=== PATIENT | female | born 1990 | race Caucasian/White ===

== ENCOUNTER 2017-02-01 18:31 | Observation (INO) | payer MEDICAID ==
[~2017-02-01 18:31] MED LIST: BACTRIM; CRANBERRY300 M1 PO; FISH OIL 1,0001 EA10; IBUPROFEN800 M1 PO; LEVOTHYROXINE50 MC3 PO; NORCO 5-325 TA1 EACH PO; VITAMIN D-32000 UNI3 PO
== END 2017-02-01 20:04 ==
LOC: LDR 18:31
PROVIDERS: ADMIT Advanced Practice Midwife
DX: O36.8130 Decreased fetal movements, third trimester, not applicable or unspecified (principal); Z3A.31 31 weeks gestation of pregnancy

== ENCOUNTER 2017-02-07 22:30 | Inpatient (IN) | payer MEDICAID ==
[2017-02-09 05:53] LABS: BASO % 0.1 % (0-2); EOS % 1.3 % (0-7); EOSINOPHIL ABSOLUTE COUNT 0.2 tho/cmm (0.0-0.7); HCT-HEMATOCRIT 32.1 % (34.0-49.0); HGB-HEMOGLOBIN 10.9 gm/dl (12.0-15.5); IMMATURE GRANULOCYTES ABSOLUTE 0.07 tho/cmm (0-0.03); IMMATURE GRANULOCYTES PERCENT 0.5 % (0-0.3); LYMPH % 20.9 % (20-45); MCH (MEAN CORPUSCULAR HGB) 30.1 pg (28.0-32.0); MCV (MEAN CELL VOLUME) 88.7 fl (82.0-96.0); MEAN PLATELET VOLUME 9.6 cmc (9.4-12.4); MONO % 7.9 % (0-12); MONOCYTE ABSOLUTE COUNT 1.1 tho/cmm (0.0-1.2); NEUTROPHILS % 69.3 % (40-80); PLATELET COUNT 238 tho/cmm (150-450); RED BLOOD COUNT 3.62 mil/cmm (4.00-5.20); RED CELL DISTRIBUTION WIDTH 12.6 % (12.4-16.4); WHITE BLOOD COUNT 14.5 tho/cmm (4.0-10.0)
[2017-02-10] MEDS ORDERED: IBUPROFEN800 M1 PO (10:50)
== END 2017-02-10 13:45 | DRG 775 ==
LOC: LDR 22:30 → OBGE 02-08 16:40
PROVIDERS: ADMIT Advanced Practice Midwife
PROC: 10E0XZZ Delivery of Products of Conception, External Approach (ICD-10-PCS; principal; 2017-02-08)
PROC: 0KQM0ZZ Repair Perineum Muscle, Open Approach (ICD-10-PCS; 2017-02-08)
PROC: 10907ZC Drainage of Amniotic Fluid, Therapeutic from Products of Conception, Via Natural or Artificial Opening (ICD-10-PCS; 2017-02-08)
DX: O32.1XX0 Maternal care for breech presentation, not applicable or unspecified (principal); O70.1 Second degree perineal laceration during delivery; Q76.0 Spina bifida occulta; Z3A.39 39 weeks gestation of pregnancy; Z37.0 Single live birth
CPT/HCPCS: J2590